=== PATIENT | female | born 1990 ===

== ENCOUNTER 2018-09-26 07:31 | Outpatient (CLI) | payer OTHER | END 2018-09-26 08:23 | disposition home or self-care (01) | LOC: EDBD 07:31 → LAB 07:31 | DX: Z11.4 Encounter for screening for human immunodeficiency virus [HIV] (principal); R82.79 Other abnormal findings on microbiological examination of urine; Z34.90 Encounter for supervision of normal pregnancy, unspecified, unspecified trimester ==